=== PATIENT | male | born 1945 | race Caucasian/White ===

== ENCOUNTER 2018-04-12 09:51 | Observation (INO) | payer OTHER ==
[~2018-04-12] VITALS: Ht 180.3 cm; Wt 92.4 kg
[2018-04-12 10:17] LABS: BASOPHIL (%) 0.6 % (0-1); BASOPHIL COUNT 0.1 K/uL (0-0.1); EOSINOPHIL (%) 5.5 % (0-5); EOSINOPHIL COUNT 0.6 K/uL (0-0.3); HEMATOCRIT 38.3 % (38.0-50.0); HEMOGLOBIN 13.7 G/DL (12.5-16.6); IMMATURE GRANULOCYTE (%) 0.6 % (0.0-0.7); LYMPHOCYTE (%) 13.7 % (15-42); LYMPHOCYTE COUNT 1.5 K/uL (1.0-2.8); MCH 30.9 PG (29.0-34.0); MCHC 35.8 G/DL (30.0-36.0); MCV 86.3 FL (86-99); MONOCYTE (%) 9.3 % (3-12); NEUTROPHIL (%) 70.3 % (45-76); NEUTROPHIL COUNT 7.6 K/uL (1.8-6.4); PLATELET COUNT 171 K/uL (156-360); RBC DIS.WIDTH-CV 12.7 % (11.8-14.6); RBC DIS.WIDTH-SD 39.8 % (39-53); RED BLOOD COUNT 4.44 M/uL (4.00-5.50); WHITE BLOOD COUNT 10.8 K/uL (4.1-10.2)
[2018-04-12 10:25] LABS: INTER. NORMALIZED RATIO 1.2
[2018-04-12 10:27] LABS: CHLORIDE 105 mEq/L (99-109); POTASSIUM 3.8 mEq/L (3.7-5.4); SODIUM 140 mEq/L (136-147)
[2018-04-12 10:28] LABS: PTT 55.2 SEC (25-37)
[2018-04-12 10:29] LABS: GLUCOSE 120 mg/dL (70-99)
[2018-04-12 10:33] LABS: CREATININE 1.6 mg/dL (0.6-1.3); GFR ESTIMATE (CALCULATED) 46 mL/min/ (58.99-99999)
[2018-04-12 10:34] LABS: UREA NITROGEN (BUN) 32 mg/dL (9-23)
[2018-04-12 10:40] LABS: TROP-I INTERPRETATION NEGATIVE; TROPONIN-I 0.02 ng/mL (0.0-0.30)
[2018-04-12] MEDS ORDERED: MURO-128 5300 DROP/1 RIGHT EYE (12:26)
[2018-04-12] MEDS ORDERED: LEVOTHYROXINE50 MCG PO (12:26)
[2018-04-12] MEDS ORDERED: OLMESARTAN-HCT1 EACH PO (12:27)
[2018-04-12] MEDS ORDERED: BYSTOLIC5 MG PO (12:27)
[2018-04-12] MEDS ORDERED: ASPIR-LOW81 MG PO (12:27)
[2018-04-12] MEDS ORDERED: NAMZARIC TITRA1 EACH PO (12:28)
[2018-04-12] MEDS ORDERED: MULTI VITAMIN1 EACH PO (12:29)
[2018-04-12] MEDS ORDERED: FISH OIL 1,0001 EAC7 PO (12:29)
[2018-04-12] MEDS ORDERED: ASCORBIC ACID250 MG PO (12:30)
[2018-04-12 16:59] VITALS: BP 135/73
[2018-04-12 19:10] VITALS: BP 134/88
[2018-04-12 23:45] VITALS: BP 101/67
[2018-04-13 00:39] VITALS: BP 92/58
[2018-04-13 03:08] VITALS: BP 110/66
[2018-04-13 07:13] VITALS: BP 125/56
[2018-04-13 11:43] VITALS: BP 112/71
== END 2018-04-13 18:52 | disposition short-term general hospital (02) ==
LOC: EME 09:51 → EDOF 13:34 → 4SOUTH 13:34 → EDOF 13:34 → ENRESERV 13:36 → 4SOUTH 16:50
PROVIDERS: Emergency Medicine; Internal Medicine
PROC: B246ZZZ Ultrasonography of Right and Left Heart (ICD-10-PCS; principal; 2018-04-13)
DX: R55 Syncope and collapse (principal); I08.3 Combined rheumatic disorders of mitral, aortic and tricuspid valves; I70.0 Atherosclerosis of aorta; I71.2 Thoracic aortic aneurysm, without rupture; R09.02 Hypoxemia; I10 Essential (primary) hypertension; F03.90 Unspecified dementia, unspecified severity, without behavioral disturbance, psychotic disturbance, mood disturbance, and anxiety; K21.9 Gastro-esophageal reflux disease without esophagitis; N28.9 Disorder of kidney and ureter, unspecified; E11.9 Type 2 diabetes mellitus without complications; M19.90 Unspecified osteoarthritis, unspecified site; J30.9 Allergic rhinitis, unspecified; Z79.82 Long term (current) use of aspirin; N40.0 Benign prostatic hyperplasia without lower urinary tract symptoms; Z87.891 Personal history of nicotine dependence; Z79.84 Long term (current) use of oral hypoglycemic drugs
CPT/HCPCS: 70450; 71045; 71275; 80048; 82948; 84484; 85025; 85379; 85610; 85730; 93005; 93306; G0378; J1650; J7030